=== PATIENT | male | born 1960 | race Two or more races ===

== ENCOUNTER 2021-05-08 20:27 | Emergency (ER) | payer BC, OTHER ==
[~2021-05-08] VITALS: Ht 190.5 cm; Wt 90.7 kg
--- NOTE | 2021-05-08 20:34 | NUR ---
GLF C/O L HIP PAIN TO ER BED 3
--- NOTE | 2021-05-08 20:45 | NUR ---
TECH AT BEDSIDE FOR XRAY
[2021-05-08] MEDS ORDERED: IBUP-1957 PO (22:24)
[2021-05-08] MEDS ORDERED: TDAP [DIPH/PERTUSSIS/TET] 0.5 ML VIAL IM ONE ×2 (22:30→22:31)
[2021-05-08 22:37] VITALS: BP 119/74
--- NOTE | 2021-05-08 22:37 | NUR ---
Patient discharged to home in stable condition. Written and verbal after care instructions given. Patient verbalizes understanding of instruction.
== END 2021-05-08 22:37 | disposition home or self-care (01) ==
LOC: ER 20:30
DX: S70.12XA Contusion of left thigh, initial encounter (principal); W01.0XXA Fall on same level from slipping, tripping and stumbling without subsequent striking against object, initial encounter; Y93.89 Activity, other specified; Y92.89 Other specified places as the place of occurrence of the external cause; Y99.8 Other external cause status
CPT/HCPCS: 73502; 73552; 90715